=== PATIENT | female | born 1980 | race African-American/Black ===

== ENCOUNTER 2017-02-15 18:04 | Emergency (ER) | payer BC, OTHER ==
[2017-02-15 18:18] VITALS: BP 118/75; PULSE 75; RESP 20; TEMP 98.1
[2017-02-15] MEDS ORDERED: diphenhydrAMINE 50 MG CAP PO STA (19:03)
[2017-02-15] MEDS ORDERED: predniSONE 50 MG TAB PO STA (19:04)
--- NOTE | 2017-02-15 19:09 | ED ---
Skin/Abscess/FB HPI - General Chief complaint: Skin/Abscess/Foreign Body Stated complaint: hives Time Seen by Provider: 02/15/17 18:43 Source: patient Mode of arrival: ambulatory Limitations: no limitations - History of Present Illness Initial comments: Patient is a 36-year-old female presenting to the emergency department with complaints of hives to her bilateral upper extremities. Onset of hives one hour prior to arrival. Patient complains of itching. Denies new medications, soaps, lotions, or foods. Patient unsure what caused hives. No history of similar symptoms. Patient denies recent illness, chills, fevers, nausea, vomiting, shortness of breath, tongue swelling, throat itching, or abdominal pain. No treatment prior to arrival. - Related Data Previous Rx's Medication Instructions Recorded diphenhydrAMINE [Benadryl] 25 - 50 mg PO QID PRN #20 capsule 02/15/17 methylPREDNISolone Dose Pack 4 mg PO DIRECTED #21 package 02/15/17 [Medrol Dose Pack] Allergies Allergy/AdvReac Type Severity Reaction Status Date / Time Influenza Virus Vaccines Allergy Swelling Verified 02/15/17 18:18 venom-honey bee Allergy Swelling Verified 02/15/17 18:18 [bee venom (honey bee)] hydrocodone AdvReac Nausea & Verified 02/15/17 18:18 Vomiting Review of Systems ROS Statement: Those systems with pertinent positive or pertinent negative responses have been documented in the HPI. ROS Other: All systems not noted in ROS Statement are negative. Past Medical History Past Medical History: Asthma, CVA/TIA Additional Past Medical History / Comment(s): MS, TIA, UTI,"HEADACHES", "LITE SENSATIVE", USES WALKER WHEN UP-LEGS WEAK BUT RT ONE IS WEAKER THAN LT, CHRONIC GENERALIZED PAIN. History of Any Multi-Drug Resistant Organisms: None Reported Past Surgical History: Back Surgery, Tubal Ligation Past Anesthesia/Blood Transfusion Reactions: No Reported Reaction Past Psychological History: No Psychological Hx Reported Additional Psychological History / Comment(s): PT LIVES WITH SPOUSE AND 3 KIDS, WORKS A TRUCKER HAND Smoking Status: Current every day smoker Past Alcohol Use History: Rare Past Drug Use History: None Reported - Past Family History Mother Family Medical History: Diabetes Mellitus, Hypertension Father Family Medical History: Congestive Heart Failure (CHF), Myocardial Infarction ( [place]) Additional Family Medical History / Comment(s): MURMUR, IRREG HEARTBEAT", GLAUCOMA. DAD'S BROTHER HAD AFIB. Sister(s) Family Medical History: GERD/Reflux Additional Family Medical History / Comment(s): X2 SISTERS WITH GERD General Exam - General Exam Comments Initial Comments: GENERAL: Pt awake and alert, well-appearing, well-nourished, and in no acute distress. HEAD: Atraumatic, normocephalic. EYES: Pupils equal, round, and reactive to light, extraocular movements intact, sclera anicteric, conjunctiva are normal. ENT: Oropharynx clear without exudates. Moist mucous membranes. No tongue swelling. NECK:Normal range of motion, supple without lymphadenopathy. LUNGS: Breath sounds clear to auscultation bilaterally. No wheezes, rales, or rhonchi. HEART: Heart S1, S2, no S3 or S4. Regular rate and rhythm. No murmurs, rubs or gallops. ABDOMEN: Soft, nontender, nondistended, normoactive bowel sounds. No guarding, no rebound. No masses or organomegaly appreciated. EXTREMITIES: Palpable peripheral pulses. No edema. NEUROLOGICAL: Pt oriented x 3. No obvious focal deficits noted. Strength and sensation grossly intact. PSYCH: Normal mood, normal affect. SKIN: Warm, dry, intact. Macular rash noted to bilateral upper extremities consistent with hives. Limitations: no limitations Course Vital Signs 02/15/17 18:15 Temperature 98.1 F Pulse Rate 75 Respiratory 20 Rate Blood Pressure 118/75 O2 Sat by Pulse 100 Oximetry Medical Decision Making - Medical Decision Making Urticaria of unknown origin. Patient treated with Benadryl and prednisone burst. Patient instructed to follow-up with primary care physician. Patient instructed to return to the emergency department with any new or worsening symptoms. Patient agrees to treatment plan. Discharge instructions and return parameters reviewed. Disposition Clinical Impression: Urticaria Disposition: HOME SELF-CARE Condition: Good Instructions: Urticaria (ED) Additional Instructions: Continue Benadryl 25-50 mg every 6 hours as needed until symptoms subside. Continue Medrol Dosepak as directed. 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 Follow-up with primary care physician as needed. Please return to the emergency department with symptoms of lip swelling, difficulty breathing, tongue swelling, abdominal pain, nausea, or vomiting. Prescriptions: diphenhydrAMINE [Benadryl] 25 - 50 mg PO QID PRN #20 capsule PRN Reason: Allergic Reaction methylPREDNISolone Dose Pack [Medrol Dose Pack] 4 mg PO DIRECTED #21 package Referrals: Yoshi Sunshine MD [Primary Care Provider] - 1-2 days Time of Disposition: 19:08
== END 2017-02-15 19:15 | disposition home or self-care (01) ==
LOC: EC 18:04
DX: L50.9 Urticaria, unspecified (principal); F17.200 Nicotine dependence, unspecified, uncomplicated; Z88.7 Allergy status to serum and vaccine; Z91.030 Bee allergy status; Z88.5 Allergy status to narcotic agent
CPT/HCPCS: 99282; J7512

== ENCOUNTER → 2020-05-01 | Outpatient (CLI) | payer OTHER ==
[2020-05-01 15:27] LABS: Basophils % (A) 0 %; Eosinophils # (A) 0.1 k/uL (0-0.7); Eosinophils % (A) 2 %; HCT 47.8 % (34.0-46.0); HGB 15.3 gm/dL (11.4-16.0); Lymphocytes # (A) 2.8 k/uL (1.0-4.8); Lymphocytes % (A) 38 %; MCH 31.1 pg (25.0-35.0); MCV 97.2 fL (80.0-100.0); Mean Platelet Volume 7.6; Monocytes # (A) 0.3 k/uL (0-1.0); Monocytes % (A) 5 %; Neutrophils % (A) 54 %; Platelet Count 278 k/uL (150-450); RBC 4.92 m/uL (3.80-5.40); RDW 13.2 % (11.5-15.5); WBC 7.4 k/uL (3.8-10.6)
[2020-05-02 01:58] LABS: ALT 42 U/L (8-44); AST 25 U/L (13-35); Albumin/Globulin Ratio 2.04 (1.60-3.17); Alkaline Phosphatase 91 U/L (41-126); BUN/Creat Ratio 12.22 Ratio (12.00-20.00); Calcium 9.5 mg/dL (8.7-10.3); Carbon Dioxide 23.4 mmol/L (21.6-31.8); Chloride 109 mmol/L (96-109); Globulin 2.3 g/dL (1.6-3.3); Glucose 91 mg/dL (70-110); Non-African American GFR(CKD) 79.4 (60.0-200.0); Potassium 4.9 mmol/L (3.5-5.5); Sodium 138 mmol/L (135-145); Total Bilirubin 0.4 mg/dL (0.3-1.2)
[2020-05-02 03:31] LABS: Hepatitis B Core IgM Non-Reactive (Non-Reactive)
[2020-05-02 03:51] LABS: Hemoglobin A1C 5.9 % (4.0-6.0)
[2020-05-02 06:40] LABS: HIV 2 AB Non-Reactive (Non-Reactive); HIV AB P24 Non-Reactive (Non-Reactive); HIV P24 AG Non-Reactive (Non-Reactive)
[2020-05-02 17:24] LABS: Hepatitis B Surface AB- Quant 3.5 mIU/mL; Hepatitis B Surface Antibody Non-Reactive (Non-Reactive); Hepatitis B Surface Antigen Non-Reactive (Non-Reactive)
[2020-05-02 18:46] LABS: Folate, Serum >24.0 ng/mL
[2020-05-03 06:01] LABS: Varicella IgM Antibody 0.39 INDEX (<=0.90)
[2020-05-04 06:45] LABS: Vit B1(Thiamine) 63 ug/L (38-122)
[2020-05-07 08:04] LABS: Nicotinamide 27 ng/mL; Nicotinic Acid None Detected; Nicotinuric Acid None Detected
== END | disposition home or self-care (01) ==
LOC: LABWHC1 12:33
PROVIDERS: ATTEND Psychiatry & Neurology Pain Medicine
DX: Z01.818 Encounter for other preprocedural examination (principal); G35 Multiple sclerosis
CPT/HCPCS: 36415; 80053; 82306; 82607; 82746; 83036; 84425; 84439; 84443; 84481; 84591; 85025; 86704; 86705; 86706; 86787; 87340; 87390; 93005